=== PATIENT | female | born 1965 | race Caucasian/White ===

== ENCOUNTER → 2016-10-15 | Outpatient (CLI) | payer OTHER ==
[~2016-10-15] MED LIST: ALBU8HFA IH
[2016-10-15 11:43] LABS: BASOPHILS % (AUTO) 0.5 % (0.0-2.0); HEMATOCRIT 32.7 % (36-46); HEMOGLOBIN 10.7 g/dL (12.0-16.0); LYMPHOCYTES # (AUTO) 2.3 K/uL (1.0-4.8); LYMPHOCYTES % (AUTO) 16.8 % (22.0-44.0); MEAN CORPUSCULAR HEMOGLOBIN 34.5 pg (26.0-34.0); MEAN CORPUSCULAR HGB CONC 32.7 G/dL (31.0-37.0); MEAN CORPUSCULAR VOLUME 106 fL (80-100); MONOCYTES # (AUTO) 1.2 K/uL (0.1-1.0); NEUTROPHILS # (AUTO) 9.7 K/uL (1.8-7.7); NEUTROPHILS % (AUTO) 71.7 % (40.0-70.0); PLATELET COUNT (AUTO) 255 K/uL (150-450); RED CELL DISTRIBUTION WIDTH 15.2 % (11.5-14.5); WHITE BLOOD COUNT (AUTO) 13.5 K/uL (4.5-11.0)
[2016-10-15 11:49] LABS: BILIRUBIN,TOTAL 1.6 mg/dL (0.1-1.0); CALCIUM, TOTAL 9.3 mg/dL (8.8-10.5); CREATININE 1.06 mg/dL (0.60-1.30); MAGNESIUM 1.7 mg/dL (1.80-2.40); POTASSIUM 3.9 mmol/L (3.5-5.1); TOTAL PROTEIN, SERUM 7.8 g/dL (6.4-8.2)
[2016-10-15 13:24] LABS: RBC MORPHOLOGY COMMENT ABNORMAL RBC MORPH
== END | disposition home or self-care (01) ==
LOC: LABPV 10:22
PROVIDERS: ATTEND Legal Medicine
DX: J32.9 Chronic sinusitis, unspecified (principal); K74.60 Unspecified cirrhosis of liver
CPT/HCPCS: 83735

== ENCOUNTER → 2016-10-24 | Outpatient (CLI) | payer OTHER ==
[2016-10-24 10:47] LABS: BASOPHILS % (AUTO) 1.7 % (0.0-2.0); EOSINOPHILS % (AUTO) 3.8 % (1.0-6.0); HEMATOCRIT 31.8 % (36-46); HEMOGLOBIN 10.4 g/dL (12.0-16.0); LYMPHOCYTES # (AUTO) 2.5 K/uL (1.0-4.8); MEAN CORPUSCULAR HEMOGLOBIN 33.8 pg (26.0-34.0); MEAN CORPUSCULAR HGB CONC 32.7 G/dL (31.0-37.0); MEAN CORPUSCULAR VOLUME 103 fL (80-100); NEUTROPHILS # (AUTO) 9.8 K/uL (1.8-7.7); NEUTROPHILS % (AUTO) 69.5 % (40.0-70.0); PLATELET COUNT (AUTO) 297 K/uL (150-450); RED BLOOD CELL COUNT(AUTO) 3.08 MIL/uL (4.00-5.20); RED CELL DISTRIBUTION WIDTH 14.4 % (11.5-14.5); WHITE BLOOD COUNT (AUTO) 14.1 K/uL (4.5-11.0)
[2016-10-24 10:56] LABS: BILIRUBIN,TOTAL 1.3 mg/dL (0.1-1.0); CALCIUM, TOTAL 9.6 mg/dL (8.8-10.5); CREATININE 1.33 mg/dL (0.60-1.30); POTASSIUM 4.5 mmol/L (3.5-5.1); TOTAL PROTEIN, SERUM 8.1 g/dL (6.4-8.2)
[2016-10-24 11:06] LABS: RBC MORPHOLOGY COMMENT ABNORMAL RBC MORPH
== END | disposition home or self-care (01) ==
LOC: LABPV 08:38
PROVIDERS: ATTEND Legal Medicine
DX: L40.9 Psoriasis, unspecified (principal)
CPT/HCPCS: 83735

== ENCOUNTER → 2016-10-26 | Outpatient (CLI) | payer OTHER ==
[~2016-10-26] MED LIST changes: +MEBROFENIN TC99M/MCL ISOTOPE 1 EA INJ INJ ONE
== END | disposition home or self-care (01) ==
LOC: RADMN 08:51
PROVIDERS: ATTEND Legal Medicine
DX: K80.20 Calculus of gallbladder without cholecystitis without obstruction (principal)
CPT/HCPCS: 78226; A9537 ×2

== ENCOUNTER → 2016-11-14 | Outpatient (CLI) | payer OTHER ==
[~2016-11-14] MED LIST changes: -MEBROFENIN TC99M/MCL ISOTOPE 1 EA INJ INJ ONE
[2016-11-14 17:01] LABS: ALANINE AMINOTRANSFERASE 15 U/L (12-78); ALBUMIN 3.4 g/dL (3.4-5.0); ANION GAP 13 mmol/L (8-16); ASPARTATE AMINOTRANSFERASE 44 U/L (15-37); BILIRUBIN,TOTAL 1.3 mg/dL (0.1-1.0); CALCIUM, TOTAL 9.3 mg/dL (8.8-10.5); CARBON DIOXIDE 23 mmol/L (22-29); CHLORIDE 104 mmol/L (98-107); CREATININE 0.91 mg/dL (0.60-1.30); FERRITIN 223 ng/mL (8-252); GLOMERULAR FILTR. RATE CALC > 60 mL/min (>60); POTASSIUM 3.9 mmol/L (3.5-5.1); SODIUM SERUM 140 mmol/L (136-145); UREA NITROGEN, BLOOD 5 mg/dL (7-18)
[2016-11-14 18:07] LABS: BASOPHILS % (AUTO) 0.8 % (0.0-2.0); EOSINOPHILS % (AUTO) 3.9 % (1.0-6.0); ERYTHROCYTE SEDIMENTATION RATE 103 MM/HR (0-20); HEMATOCRIT 33.5 % (36-46); LYMPHOCYTES # (AUTO) 2.3 K/uL (1.0-4.8); LYMPHOCYTES % (AUTO) 21.1 % (22.0-44.0); MEAN CORPUSCULAR HEMOGLOBIN 32.4 pg (26.0-34.0); MEAN CORPUSCULAR VOLUME 98 fL (80-100); MONOCYTES # (AUTO) 0.6 K/uL (0.1-1.0); MONOCYTES % (AUTO) 5.7 % (2.0-9.0); NEUTROPHILS # (AUTO) 7.4 K/uL (1.8-7.7); NEUTROPHILS % (AUTO) 68.5 % (40.0-70.0); PLATELET COUNT (AUTO) 209 K/uL (150-450); RED BLOOD CELL COUNT(AUTO) 3.41 MIL/uL (4.00-5.20); WHITE BLOOD COUNT (AUTO) 10.9 K/uL (4.5-11.0)
== END | disposition home or self-care (01) ==
LOC: LABPV 14:41
PROVIDERS: ATTEND Legal Medicine
DX: K70.30 Alcoholic cirrhosis of liver without ascites (principal); F32.9 Major depressive disorder, single episode, unspecified; G25.81 Restless legs syndrome
CPT/HCPCS: 82306; 82728; 82746; 85651

== ENCOUNTER → 2017-03-29 | Outpatient (CLI) | payer OTHER ==
[2017-03-29 09:49] LABS: BASOPHILS % (AUTO) 0.5 % (0.0-2.0); EOSINOPHILS % (AUTO) 7.7 % (1.0-6.0); HEMATOCRIT 39.3 % (36-46); HEMOGLOBIN 13.4 g/dL (12.0-16.0); LYMPHOCYTES # (AUTO) 1.7 K/uL (1.0-4.8); LYMPHOCYTES % (AUTO) 25.9 % (22.0-44.0); MEAN CORPUSCULAR HEMOGLOBIN 31.4 pg (26.0-34.0); MEAN CORPUSCULAR HGB CONC 34.2 G/dL (31.0-37.0); MEAN CORPUSCULAR VOLUME 92 fL (80-100); MONOCYTES # (AUTO) 0.6 K/uL (0.1-1.0); MONOCYTES % (AUTO) 8.8 % (2.0-9.0); NEUTROPHILS # (AUTO) 3.8 K/uL (1.8-7.7); NEUTROPHILS % (AUTO) 57.1 % (40.0-70.0); RED BLOOD CELL COUNT(AUTO) 4.27 MIL/uL (4.00-5.20); RED CELL DISTRIBUTION WIDTH 15.4 % (11.5-14.5); WHITE BLOOD COUNT (AUTO) 6.7 K/uL (4.5-11.0)
[2017-03-29 10:28] LABS: ALANINE AMINOTRANSFERASE 24 U/L (12-78); ANION GAP 13 mmol/L (8-16); ASPARTATE AMINOTRANSFERASE 35 U/L (15-37); CALCIUM, TOTAL 11.1 mg/dL (8.8-10.5); CARBON DIOXIDE 23 mmol/L (22-29); CHLORIDE 102 mmol/L (98-107); CHOL/HDL RATIO 4.2 (3.9-5.7); CREATININE 0.85 mg/dL (0.60-1.30); GLOMERULAR FILTR. RATE CALC > 60 mL/min (>60); POTASSIUM 4.1 mmol/L (3.5-5.1); SODIUM SERUM 138 mmol/L (136-145); THYROID STIMULATING HORMONE 1.49 uIU/mL (0.36-3.74); TOTAL PROTEIN, SERUM 8.3 g/dL (6.4-8.2); UREA NITROGEN, BLOOD 7 mg/dL (7-18)
[2017-03-29 11:02] LABS: PLATELET COUNT (AUTO) 71 K/uL (150-450)
[2017-03-29 11:03] LABS: RBC MORPHOLOGY COMMENT NORMAL RBC MORPH
== END | disposition home or self-care (01) ==
LOC: LABPV 07:57
PROVIDERS: ATTEND Legal Medicine
DX: I10 Essential (primary) hypertension (principal); R10.9 Unspecified abdominal pain
CPT/HCPCS: 82306; 83735; 84443

== ENCOUNTER → 2017-07-22 | Outpatient (CLI) | payer OTHER ==
[2017-07-22 09:14] LABS: ALANINE AMINOTRANSFERASE 33 U/L (12-78); ALBUMIN 4.2 g/dL (3.4-5.0); ALKALINE PHOSPHATASE 125 U/L (46-116); ANION GAP 16 mmol/L (8-16); ASPARTATE AMINOTRANSFERASE 49 U/L (15-37); CALCIUM, TOTAL 9.5 mg/dL (8.8-10.5); CARBON DIOXIDE 23 mmol/L (22-29); CHLORIDE 101 mmol/L (98-107); CHOLESTEROL 288 mg/dL (131-200); CREATININE 0.71 mg/dL (0.60-1.30); GLOMERULAR FILTR. RATE CALC > 60 mL/min (>60); GLUCOSE,RANDOM 125 mg/dL (70-110); HDL CHOLESTEROL 96 mg/dL (40-60); LDL CHOL (CALC.) 180 mg/dL (0-130); SODIUM SERUM 140 mmol/L (136-145); TOTAL PROTEIN, SERUM 8.6 g/dL (6.4-8.2); TRIGLYCERIDES 60 mg/dL (15-150); UREA NITROGEN, BLOOD 7 mg/dL (7-18)
== END | disposition home or self-care (01) ==
LOC: LABPV 08:06
PROVIDERS: ATTEND Legal Medicine
DX: E83.52 Hypercalcemia (principal); E83.42 Hypomagnesemia; D69.6 Thrombocytopenia, unspecified; K29.20 Alcoholic gastritis without bleeding
CPT/HCPCS: 83735

== ENCOUNTER → 2017-10-29 | Outpatient (CLI) | payer OTHER ==
[2017-10-29 11:43] LABS: BASOPHILS % (AUTO) 1.3 % (0.0-2.0); EOSINOPHILS % (AUTO) 8.4 % (1.0-6.0); HEMATOCRIT 40.1 % (36-46); HEMOGLOBIN 14.1 g/dL (12.0-16.0); LYMPHOCYTES # (AUTO) 2.3 K/uL (1.0-4.8); LYMPHOCYTES % (AUTO) 35.3 % (22.0-44.0); MEAN CORPUSCULAR HEMOGLOBIN 31.2 pg (26.0-34.0); MEAN CORPUSCULAR HGB CONC 35.1 G/dL (31.0-37.0); MEAN CORPUSCULAR VOLUME 89 fL (80-100); MONOCYTES # (AUTO) 0.4 K/uL (0.1-1.0); MONOCYTES % (AUTO) 6.9 % (2.0-9.0); NEUTROPHILS # (AUTO) 3.1 K/uL (1.8-7.7); NEUTROPHILS % (AUTO) 48.1 % (40.0-70.0); PLATELET COUNT (AUTO) 126 K/uL (150-450); RED BLOOD CELL COUNT(AUTO) 4.51 MIL/uL (4.00-5.20); RED CELL DISTRIBUTION WIDTH 13.2 % (11.5-14.5)
[2017-10-29 12:01] LABS: ALANINE AMINOTRANSFERASE 31 U/L (12-78); ALKALINE PHOSPHATASE 136 U/L (46-116); ANION GAP 10 mmol/L (8-16); ASPARTATE AMINOTRANSFERASE 33 U/L (15-37); CALCIUM, TOTAL 9.9 mg/dL (8.8-10.5); CARBON DIOXIDE 25 mmol/L (22-29); CHLORIDE 103 mmol/L (98-107); CHOL/HDL RATIO 3.4 (3.9-5.7); CHOLESTEROL 236 mg/dL (131-200); CREATININE 0.88 mg/dL (0.60-1.30); GLOMERULAR FILTR. RATE CALC > 60 mL/min (>60); GLUCOSE,RANDOM 97 mg/dL (70-110); HDL CHOLESTEROL 70 mg/dL (40-60); LDL CHOL (CALC.) 154 mg/dL (0-130); POTASSIUM 4.3 mmol/L (3.5-5.1); SODIUM SERUM 138 mmol/L (136-145); THYROID STIMULATING HORMONE 1.14 uIU/mL (0.36-3.74); TOTAL PROTEIN, SERUM 8.4 g/dL (6.4-8.2); TRIGLYCERIDES 59 mg/dL (15-150); UREA NITROGEN, BLOOD 9 mg/dL (7-18)
[2017-10-29 12:07] LABS: VITAMIN B12 LEVEL 742 pg/mL (211-911); VITAMIN D,TOTAL (25-0H) 53 ng/mL (30-100)
[2017-10-29 12:18] LABS: FOLATE SERUM > 24.0 ng/mL (5.4-)
== END | disposition home or self-care (01) ==
LOC: LABPV 09:41
PROVIDERS: ATTEND Legal Medicine
DX: K70.9 Alcoholic liver disease, unspecified (principal)
CPT/HCPCS: 82306; 82607; 82746; 83735; 84443

== ENCOUNTER → 2020-08-08 | Outpatient (CLI) | payer OTHER ==
[2020-08-08 09:36] LABS: BASOPHILS % (AUTO) 1.1 % (0.0-2.0); EOSINOPHILS % (AUTO) 3.9 % (1.0-6.0); HEMATOCRIT 39.4 % (36-46); HEMOGLOBIN 13.4 g/dL (12.0-16.0); LYMPHOCYTES # (AUTO) 2.1 K/uL (1.0-4.8); LYMPHOCYTES % (AUTO) 36.9 % (22.0-44.0); MEAN CORPUSCULAR HEMOGLOBIN 29.6 pg (26.0-34.0); MEAN CORPUSCULAR VOLUME 87 fL (80-100); MONOCYTES # (AUTO) 0.4 K/uL (0.1-1.0); MONOCYTES % (AUTO) 7.6 % (2.0-9.0); NEUTROPHILS # (AUTO) 2.9 K/uL (1.8-7.7); NEUTROPHILS % (AUTO) 50.5 % (40.0-70.0); PLATELET COUNT (AUTO) 130 K/uL (150-450); RED BLOOD CELL COUNT(AUTO) 4.53 MIL/uL (4.00-5.20); RED CELL DISTRIBUTION WIDTH 13.7 % (11.5-14.5)
[2020-08-08 10:00] LABS: ALANINE AMINOTRANSFERASE 20 U/L (12-78); ALBUMIN 3.7 g/dL (3.4-5.0); ALKALINE PHOSPHATASE 71 U/L (46-116); ANION GAP 8 mmol/L (8-16); ASPARTATE AMINOTRANSFERASE 19 U/L (15-37); BILIRUBIN,TOTAL 0.4 mg/dL (0.1-1.0); CALCIUM, TOTAL 9.3 mg/dL (8.8-10.5); CARBON DIOXIDE 26 mmol/L (22-29); CHLORIDE 100 mmol/L (98-107); CHOL/HDL RATIO 3.5 (3.9-5.7); CHOLESTEROL 195 mg/dL (131-200); CREATININE 0.94 mg/dL (0.60-1.30); GLOMERULAR FILTR. RATE CALC > 60 mL/min (>60); GLUCOSE,RANDOM 99 mg/dL (70-110); HDL CHOLESTEROL 55 mg/dL (40-60); LDL CHOL (CALC.) 132 mg/dL (0-130); POTASSIUM 3.9 mmol/L (3.5-5.1); SODIUM SERUM 134 mmol/L (136-145); THYROID STIMULATING HORMONE 1.51 uIU/mL (0.36-3.74); TOTAL PROTEIN, SERUM 7.3 g/dL (6.4-8.2); TRIGLYCERIDES 42 mg/dL (15-150); UREA NITROGEN, BLOOD 16 mg/dL (7-18)
[2020-08-08 10:02] LABS: HEMOGLOBIN A1C 5.3 % (3.8-5.6)
[2020-08-08 19:08] LABS: FOLATE SERUM 6.6 ng/mL (5.4-)
== END | disposition home or self-care (01) ==
LOC: LABPV 08:16
PROVIDERS: ATTEND Legal Medicine
DX: I10 Essential (primary) hypertension (principal); G47.00 Insomnia, unspecified; L98.9 Disorder of the skin and subcutaneous tissue, unspecified; K70.30 Alcoholic cirrhosis of liver without ascites; E53.8 Deficiency of other specified B group vitamins; D69.6 Thrombocytopenia, unspecified; M79.7 Fibromyalgia; F32.9 Major depressive disorder, single episode, unspecified
CPT/HCPCS: 82271; 82306; 82607; 82746; 83036; 84443

== ENCOUNTER → 2020-08-17 | Outpatient (CLI) | payer OTHER | END | disposition home or self-care (01) | LOC: RADPV 08:08 | PROVIDERS: ATTEND Legal Medicine | DX: K80.20 Calculus of gallbladder without cholecystitis without obstruction (principal); R16.0 Hepatomegaly, not elsewhere classified; R10.0 Acute abdomen | CPT/HCPCS: 76700 ==

== ENCOUNTER 2020-12-30 10:05 | Day surgery (SDC) | payer OTHER ==
[2020-12-28 12:47] LABS: COVID AG,FIA SOURCE NASOPHARYNGEAL
[~2020-12-30] VITALS: Ht 165.1 cm; Wt 75.0 kg
[~2020-12-30 10:05] MED LIST changes: +ARIP5TAB37 PO; +ESCI-8 PO; +HYDR50CA9 PO; +QUET25TA PO; +SODIUM CHLORIDE 0.9% 1,000 ML IV ONE; +SODIUM CHLORIDE 0.9% 1,000 ML ONE
[2020-12-30] MEDS ORDERED: PROPOFOL 1% 20 ML VIAL IVP ONE (10:06)
[2020-12-30] MEDS ORDERED: OXYGEN THERAPY IH SCH (20:00)
== END 2020-12-30 12:30 | disposition home or self-care (01) ==
LOC: SURGERY 10:05
PROVIDERS: ATTEND Specialist
DX: K29.70 Gastritis, unspecified, without bleeding (principal); K74.60 Unspecified cirrhosis of liver
CPT/HCPCS: 43239; 87426; C9803; J2704; J7030; 88305; 88312; 88313

== ENCOUNTER 2021-01-26 12:09 | Day surgery (SDC) | payer OTHER ==
[2021-01-25 12:47] LABS: COVID AG,FIA SOURCE NASOPHARYNGEAL
[~2021-01-26] VITALS: Ht 165.1 cm; Wt 75.0 kg
[2021-01-26] MEDS ORDERED: PROPOFOL 1% 20 ML VIAL IVP ONE (12:10)
[2021-01-26] MEDS ORDERED: LIDOCAINE/PF 2% 5 ML SYRINGE IVP ONE (12:10)
== END 2021-01-26 15:20 | disposition home or self-care (01) ==
LOC: SURGERY 12:09
PROVIDERS: ATTEND Student in an Organized Health Care Education/Training Program
DX: K64.8 Other hemorrhoids (principal); K57.30 Diverticulosis of large intestine without perforation or abscess without bleeding; F32.9 Major depressive disorder, single episode, unspecified; K74.60 Unspecified cirrhosis of liver; M19.042 Primary osteoarthritis, left hand; M19.041 Primary osteoarthritis, right hand; Z85.3 Personal history of malignant neoplasm of breast; Z72.89 Other problems related to lifestyle; Z98.890 Other specified postprocedural states; Z88.8 Allergy status to other drugs, medicaments and biological substances; Z88.2 Allergy status to sulfonamides
CPT/HCPCS: 45378; 87426; C9803; J2704; J3490; J7030

== ENCOUNTER 2021-07-31 09:07 | Emergency (ER) | payer OTHER ==
[~2021-07-31] VITALS: Ht 165.1 cm; Wt 77.0 kg
[~2021-07-31 09:07] MED LIST changes: -SODIUM CHLORIDE 0.9% 1,000 ML IV ONE; -SODIUM CHLORIDE 0.9% 1,000 ML ONE
[2021-07-31 09:26] VITALS: BP 138/99
[2021-07-31 10:47] LABS: COVID AG,FIA SOURCE NASAL SWAB
== END 2021-07-31 13:21 | disposition home or self-care (01) ==
LOC: EMS 09:07
DX: R05.9 Cough, unspecified (principal); I10 Essential (primary) hypertension; Z20.822 Contact with and (suspected) exposure to COVID-19
CPT/HCPCS: 87426; 99283; U0003

== ENCOUNTER → 2023-06-14 | Outpatient (CLI) | payer OTHER ==
[~2023-06-14] MED LIST changes: +ALBU18HF12 IH; -ALBU8HFA IH; +HYDR50CA7 PO; -HYDR50CA9 PO
[2023-06-14 07:34] LABS: BASOPHILS % (AUTO) 0.9 % (0.0-2.0); HEMATOCRIT 45.1 % (36-46); HEMOGLOBIN 15.2 g/dL (12.0-16.0); LYMPHOCYTES % (AUTO) 20.3 % (22.0-44.0); MEAN CORPUSCULAR HEMOGLOBIN 30.1 pg (26.0-34.0); MEAN CORPUSCULAR HGB CONC 33.6 G/dL (31.0-37.0); MEAN CORPUSCULAR VOLUME 90 fL (80-100); MONOCYTES # (AUTO) 0.4 K/uL (0.1-1.0); MONOCYTES % (AUTO) 7.6 % (2.0-9.0); NEUTROPHILS # (AUTO) 3.3 K/uL (1.8-7.7); NEUTROPHILS % (AUTO) 69.2 % (40.0-70.0); RED BLOOD CELL COUNT(AUTO) 5.03 MIL/uL (4.00-5.20); RED CELL DISTRIBUTION WIDTH 14.3 % (11.5-14.5); WHITE BLOOD COUNT (AUTO) 4.8 K/uL (4.5-11.0)
[2023-06-14 07:41] LABS: HEMOGLOBIN A1C 5.5 % (3.8-5.6)
[2023-06-14 08:01] LABS: ALANINE AMINOTRANSFERASE 27 U/L (12-78); ALBUMIN 3.8 g/dL (3.4-5.0); ALKALINE PHOSPHATASE 94 U/L (46-116); ANION GAP 15 mmol/L (8-16); ASPARTATE AMINOTRANSFERASE 25 U/L (15-37); BILIRUBIN,TOTAL 0.9 mg/dL (0.1-1.0); CALCIUM, TOTAL 9.3 mg/dL (8.8-10.5); CARBON DIOXIDE 22 mmol/L (22-29); CHLORIDE 103 mmol/L (98-107); CHOL/HDL RATIO 3.7 (3.9-5.7); CHOLESTEROL 251 mg/dL (131-200); CREATININE 0.91 mg/dL (0.60-1.30); GLOMERULAR FILTR. RATE CALC > 60 mL/min (>60); GLUCOSE,RANDOM 137 mg/dL (70-110); HDL CHOLESTEROL 68 mg/dL (40-60); LDL CHOL (CALC.) 168 mg/dL (0-130); POTASSIUM 3.8 mmol/L (3.5-5.1); SODIUM SERUM 140 mmol/L (136-145); THYROID STIMULATING HORMONE 1.22 uIU/mL (0.36-3.74); TOTAL PROTEIN, SERUM 7.3 g/dL (6.4-8.2); TRIGLYCERIDES 76 mg/dL (15-150); UREA NITROGEN, BLOOD 6 mg/dL (7-18)
[2023-06-14 08:31] LABS: PLATELET COUNT (AUTO) 50 K/uL (150-450)
[2023-06-14 08:32] LABS: RBC MORPHOLOGY COMMENT NORMAL RBC MORPH
== END | disposition home or self-care (01) ==
LOC: LABMN 07:10
PROVIDERS: ATTEND Legal Medicine
DX: I10 Essential (primary) hypertension (principal); G47.00 Insomnia, unspecified; K70.30 Alcoholic cirrhosis of liver without ascites; L98.9 Disorder of the skin and subcutaneous tissue, unspecified
CPT/HCPCS: 80053; 80061; 82306; 82607; 82746; 83036; 84443; 85025

== ENCOUNTER → 2023-07-17 | Outpatient (CLI) | payer OTHER ==
[2023-07-17 15:38] LABS: BASOPHILS % (AUTO) 1.1 % (0.0-2.0); EOSINOPHILS % (AUTO) 2.8 % (1.0-6.0); HEMATOCRIT 43.1 % (36-46); HEMOGLOBIN 14.5 g/dL (12.0-16.0); LYMPHOCYTES # (AUTO) 1.4 K/uL (1.0-4.8); LYMPHOCYTES % (AUTO) 25.1 % (22.0-44.0); MEAN CORPUSCULAR HEMOGLOBIN 30.1 pg (26.0-34.0); MEAN CORPUSCULAR HGB CONC 33.6 G/dL (31.0-37.0); MEAN CORPUSCULAR VOLUME 90 fL (80-100); MONOCYTES # (AUTO) 0.5 K/uL (0.1-1.0); MONOCYTES % (AUTO) 8.4 % (2.0-9.0); NEUTROPHILS # (AUTO) 3.4 K/uL (1.8-7.7); NEUTROPHILS % (AUTO) 62.6 % (40.0-70.0); PLATELET COUNT (AUTO) 129 K/uL (150-450); RED BLOOD CELL COUNT(AUTO) 4.82 MIL/uL (4.00-5.20); WHITE BLOOD COUNT (AUTO) 5.4 K/uL (4.5-11.0)
== END | disposition home or self-care (01) ==
LOC: LABMN 14:51
PROVIDERS: ATTEND Legal Medicine
DX: D69.6 Thrombocytopenia, unspecified (principal)
CPT/HCPCS: 85025